=== PATIENT | female | born 1990 | race Caucasian/White ===

== ENCOUNTER 2023-02-17 13:42 | Outpatient (OUT) | payer OTHER, SELFPAY ==
--- NOTE | 2023-02-17 13:46 | US_ITS ---
The [address] [address] Patient Name: BELLA MCADAMS MRN: [id number] date: 1990 Sex: F Assigned Patient Location: Current Patient Location: US Accession/Order Number: [id number] Exam Date: 02/17/2023 13:47 Report Date: 02/17/2023 14:45 At the request of: STEFANI POSADA Procedure: US pelvis transvaginal EXAMINATION: US pelvis transvaginal HISTORY: Pelvic pain in female R10.2, Irregular periods N92.6 COMPARISON: No relevant comparison available. TECHNIQUE: Transabdominal and/or transvaginal sonographic examination was performed as indicated by examination type. FINDINGS: UTERUS: Incidental small nabothian cysts. Normal size and contour of the uterus. Uterus size: 7.9 x 4.4 x 6.5 cm ENDOMETRIUM: Normal homogeneous appearance. Endometrial thickness: 10 mm RIGHT OVARY: Contains a 1.3 cm thick-walled complex cyst with increased surrounding vascularity. Duplex Doppler demonstrates normal waveform and flow; resistive index 0.4. Ovary size: 3.7 x 2.7 x 2.7 cm LEFT OVARY: Normal size and appearance. Duplex Doppler demonstrates normal waveform and flow; resistive index 0.5. Ovary size: 3.2 x 2.4 x 2.5 cm CUL-DE-SAC: Unremarkable. No significant free fluid. BLADDER: Unremarkable. OTHER: None. IMPRESSION: 1. Right ovary contains a complex 1.3 cm cyst; hemorrhagic versus collapsing follicle. Consider follow-up imaging in 6 weeks to document resolution. 2. Otherwise no suspicious findings to account for patient's symptoms. Electronically authenticated by: MAX KELLY Date: 02/17/2023 14:45
[2023-02-17 14:38] LABS: Basophils Absolute Auto 0.1 10^3/uL (0.0-0.1); Basophils Percent Auto 0.9 % (0.2-2.0); Eosinophils Percent Auto 0.6 % (0.9-7.0); Hemoglobin 14.5 g/dL (12.0-16.0); Immature Granulocytes Abs Auto 0.01 10^3/uL (0.00-0.03); Immature Granulocytes Pct Auto 0.1 % (0.0-0.5); Lymphocytes Absolute Auto 2.6 10^3/uL (1.2-3.8); Lymphocytes Percent Auto 38.4 % (20.5-60.0); Mean Corpuscular HGB Conc 33.7 g/dL (29.9-35.2); Mean Corpuscular Hemoglobin 29.3 pg (26.7-34.0); Mean Corpuscular Volume 86.9 fL (81.0-99.0); Mean Platelet Volume 9.1 fL (9.5-13.5); Monocytes Absolute Auto 0.3 10^3/uL (0.3-0.8); Monocytes Percent Auto 3.7 % (1.7-12.0); Neutrophils Absolute Auto 3.8 10^3/uL (1.4-6.5); Neutrophils Percent Auto 56.3 % (43.0-75.0); Platelet Count 314 10^3/uL (150-450); Red Blood Count 4.95 10^6/uL (4.20-5.40); Red Cell Distribution Width 12.6 % (11.0-15.0); White Blood Count 6.7 10^3/uL (4.0-11.0)
[2023-02-17 14:46] LABS: INR 0.97; Partial Thromboplastin Time 31.8 sec (22.3-36.2); Prothrombin Time 10.3 sec (9.0-11.6)
[2023-02-17 15:01] LABS: Free T4 0.96 ng/dL (0.76-1.46)
[2023-02-17 15:08] LABS: HCG Quantitative <1 mIU/mL; Thyroid Stimulating Hormone 1.452 uIU/mL (0.358-3.740)
[2023-02-17 15:54] LABS: Estimated Average Glucose 105 mg/dL; Glycohemoglobin A1C 5.3 % (4.5-6.2)
== END 2023-02-17 13:43 | disposition home or self-care (01) ==
PROVIDERS: PCP Internal Medicine; Visit Provider Obstetrics & Gynecology
DX: R10.2 Pelvic and perineal pain (principal); N92.6 Irregular menstruation, unspecified; N83.291 Other ovarian cyst, right side
CPT/HCPCS: 36415; 76830; 83036; 84439; 84443; 84702; 85025; 85610; 85730

== ENCOUNTER 2023-04-14 20:30 | Outpatient (REF) | payer OTHER, SELFPAY ==
[2023-04-22 11:13] LABS: Age Gdln ACOG Testing Note (.); HPV Aptima Negative (Negative); IGP, Aptima HPV, rfx 16/18,45 Note (.)
== END 2023-04-14 20:31 | disposition home or self-care (01) ==
LOC: LAB 20:30
PROVIDERS: PCP Internal Medicine; Visit Provider Obstetrics & Gynecology
DX: Z12.4 Encounter for screening for malignant neoplasm of cervix (principal)
CPT/HCPCS: 87624; G0145

== ENCOUNTER 2023-05-06 11:02 | Outpatient (OUT) | payer OTHER, SELFPAY | END 2023-05-06 11:03 | disposition home or self-care (01) | LOC: PST 11:02 | PROVIDERS: PCP Internal Medicine; Visit Provider Obstetrics & Gynecology | DX: Z01.818 Encounter for other preprocedural examination (principal); R10.2 Pelvic and perineal pain; N92.0 Excessive and frequent menstruation with regular cycle; N93.9 Abnormal uterine and vaginal bleeding, unspecified ==